=== PATIENT | female | born 1990 ===

== ENCOUNTER 2020-06-24 07:05 | Day surgery (SDC) | payer OTHER ==
[2020-06-24] MEDS ORDERED: PERCOCET 5-3251 EACH PO (15:48)
== END 2020-06-24 18:10 | disposition home or self-care (01) ==
LOC: CIR.AMB 07:05
PROVIDERS: ATTEND Obstetrics & Gynecology Gynecology
DX: N85.02 Endometrial intraepithelial neoplasia [EIN] (principal); N73.6 Female pelvic peritoneal adhesions (postinfective); N92.0 Excessive and frequent menstruation with regular cycle